=== PATIENT | male | born 1975 | race Caucasian/White ===

== ENCOUNTER 2018-08-04 12:58 | Emergency (ER) | payer SELFPAY ==
[~2018-08-04] VITALS: Ht 175.3 cm; Wt 65.8 kg
[2018-08-04] MEDS ORDERED: AMMONIA AROMATIC 15% INHALANT AMPUL. ONE (13:03)
[2018-08-04 13:40] VITALS: BP 153/91
== END 2018-08-04 13:16 | disposition left against medical advice (07) ==
LOC: EDBD 12:58 → ER 12:58
DX: R56.9 Unspecified convulsions (principal); Z53.21 Procedure and treatment not carried out due to patient leaving prior to being seen by health care provider